=== PATIENT | male | born 1995 | race Hispanic/Latino ===

== ENCOUNTER 2023-05-04 23:34 | Emergency (ER) | payer SELFPAY ==
[2023-05-05] MEDS ORDERED: DIPHENOX/ATROP SULF 1 TAB PO ONE (00:39)
[2023-05-05] MEDS ORDERED: PROMETHAZINE 25 MG TABLET ONE (00:39)
[2023-05-05] MEDS ORDERED: IBUPROFEN 400 MG TAB ONE (00:40)
[2023-05-05] MEDS ORDERED: CODEINE 30MG/APAP 300MG TAB ONE (00:40)
--- NOTE | 2023-05-05 01:43 | EDPHYS ---
Physician Documentation [facility] Name: Gavino Vega Age: 27 yrs Sex: Male : 1995 Arrival Date: 05/04/2023 Time: 23:34 Bed IW1 Private MD: ED Physician Hugo Boland HPI: 05/05 00:14 This 27 yrs old Male presents to ER via Unassigned with complaints of Fever, sp4 Cough, Congestion, Sore Throat, General Weakness, Muscle Aches. 00:18 Patient presents with 1 week of body aches, headache, chills, subjective fever, nausea, sp4 diarrhea and feeling unwell overall. Historical: - Allergies: 00:16 No Known Allergies; vc1 - Home Meds: 00:16 None [Active]; vc1 - PMHx: 00:16 None; vc1 - PSHx: 00:16 None; vc1 - Immunization history:: Client reports having NOT received the Covid vaccine. - Social history:: Smoking status: Reported history of juuling and/or vaping. - Family history:: not pertinent. ROS: 01:40 Constitutional: Positive fever, chills, body ache sp4 01:40 All other systems are negative, Exam: 01:40 Constitutional: This is a well developed, well nourished patient who is awake, alert, sp4 and in no acute distress. Head/Face: Normocephalic, atraumatic. Eyes: Pupils equal round and reactive to light, extra-ocular motions intact. Lids and lashes normal. Conjunctiva and sclera are not injected. Cornea within normal limits. Periorbital areas with no swelling, redness, or edema. ENT: Nares patent. No nasal discharge, no septal abnormalities noted. Tympanic membranes are normal and external auditory canals are clear. Oropharynx with no redness, swelling, or masses, exudates, or evidence of obstruction, uvula midline. Mucous membranes moist. Neck: Trachea midline, no thyromegaly or masses palpated, and no cervical lymphadenopathy. Supple, full range of motion without nuchal rigidity, or vertebral point tenderness. Chest/axilla: Normal chest wall appearance and motion. Nontender with no deformity. No lesions are appreciated. Cardiovascular: Regular rate and rhythm with a normal S1 and S2. No gallops, murmurs, or rubs. Normal PMI, no JVD. No pulse deficits. Respiratory: Lungs have equal breath sounds bilaterally, clear to auscultation and percussion. No rales, rhonchi or wheezes noted. No increased work of breathing, no retractions or nasal flaring. Abdomen/GI: Soft, non-tender, with normal bowel sounds. No distension or tympany. No guarding or rebound. No evidence of tenderness throughout. Back: No spinal tenderness. No costovertebral tenderness. Skin: Warm, dry with normal turgor. Normal color with no rashes, no lesions, and no evidence of cellulitis. MS/ Extremity: Pulses equal, no cyanosis. Neurovascular intact. Full, normal range of motion. Neuro: Awake and alert, GCS 15, oriented to person, place, time, and situation. Cranial nerves II-XII grossly intact. Motor strength 5/5 in all extremities. Sensory grossly intact. Psych: Awake, alert, with orientation to person, place and time. Behavior, mood, and affect are within normal limits Vital Signs: 00:13 BP 147 / 94; Pulse 71; Resp 18; Temp 98.1; Pulse Ox 100% ; Weight 108.41 kg; Height 5 vc1 ft. 10 in. ; 00:13 Body Mass Index 34.29 (108.41 kg, 177.8 cm) vc1 MDM: 00:25 Patient medically screened. sp4 01:40 Differential diagnosis: viral Infection, bacterial infection, URI, bronchitis, sp4 pneumonia UTI, gastroenteritis. Data reviewed: vital signs, nurses notes, old medical records, lab test result(s), Flu: negative. ED course: Coronavirus and influenza negative, patient discharged home , advised symptomatic medications. 05/05 00:14 Order name: COVID-19 SARS RT PCR; Complete Time: 36 sp4 05/05 00:14 Order name: Influenza Screen (a \T\ B); Complete Time: 36 sp4 Administered Medications: 00:29 Drug: Promethazine PO 50 mg PO once Route: PO; vc1 01:45 Follow up: Response: No adverse reaction lg3 00:29 Drug: Ibuprofen PO 800 mg PO once Route: PO; vc1 01:45 Follow up: Response: No adverse reaction lg3 00:29 Drug: Diphenoxylate-Atropine PO 2 tabs PO once Route: PO; vc1 01:44 Follow up: Response: No adverse reaction lg3 01:44 Follow up: Response: No adverse reaction lg3 01:45 Follow up: Response: No adverse reaction; Marked relief of symptoms vc1 00:30 Drug: Acetaminophen-Codeine PO (300 mg-30 mg) 2 tabs PO once; RASS on ADMIN: Combtv4, vc1 Very Agttd3, Agttd2, Rstlss1, AlertClm0, Drwsy-1, Lt Sdtn-2, Mod Sdtn-3, Dp Sdtn-4, UnArsble-5 Route: PO; 01:45 Follow up: Response: No adverse reaction lg3 01:41 Not Given (Patient Refused): ns 0.9% 1000 ml IV at 1 bolus Per protocol; 1000 mL bolus lg3 Disposition Summary: 05/05/23 01:43 Discharge Ordered Notes: We advise OTC Ibuprofen and Tylenol Location: Home sp4 Problem: new sp4 Symptoms: have improved sp4 Condition: Stable sp4 Diagnosis - Other specified fever sp4 - Acute febrile illness, acute viral illness, common cold sp4 Followup: sp4 - With: Private Physician - When: As needed - Reason: Discharge Instructions: - Discharge Summary Sheet sp4 - Fever, Adult, [id number] sp4 Forms: - Patient Portal Instructions sp4 Signatures: Dispatcher [employer] Georgina Morrison RN RN vc1 Hugo Boland MD MD sp4 Annie Dominique RN lg3 Corrections: (The following items were deleted from the chart) 01:41 01:37 IV Saline Lock ordered. sp4 lg3 01:41 01:37 Labs collected and sent ordered. sp4 lg3
--- NOTE | 2023-05-05 01:43 | ER ---
Nurse's Notes [facility] Name: Gavino Vega Age: 27 yrs Sex: Male : 1995 Arrival Date: 05/04/2023 Time: 23:34 Bed IW1 Private MD: Diagnosis: Other specified fever;Acute febrile illness, acute viral illness, common cold Presentation: 05/05 00:13 Chief complaint: Patient states: body aces sick times 1 week. I have a massive vc1 headache. I took an excedrin but it isn't working. I have chills, been feverish, nauseous and with a sore throat. Coronavirus screen: Vaccine status: Patient reports being unvaccinated. Client denies travel out of the [place] in the last 14 days. chills, cough unrelated to allergies, fatigue, fever, headache, muscle pain, nausea, vomiting. Client presents with at least one sign or symptom that may indicate coronavirus-19. Ebola Screen: Patient negative for fever greater than or equal to 101.5 degrees Fahrenheit, and additional compatible Ebola Virus Disease symptoms Patient denies exposure to infectious person. Patient denies travel to an Ebola-affected area in the 21 days before illness onset. No symptoms or risks identified at this time. Initial Sepsis Screen: Does the patient meet any 2 criteria? No. Patient's initial sepsis screen is negative. Does the patient have a suspected source of infection? No. Patient's initial sepsis screen is negative. Risk Assessment: Do you want to hurt yourself or someone else? Patient reports no desire to harm self or others. Onset of symptoms is unknown. 00:13 Method Of Arrival: Ambulatory vc1 00:13 Acuity: BERNA 4 vc1 Triage Assessment: 00:17 General: Appears in no apparent distress. uncomfortable, ill, Behavior is calm, vc1 cooperative, appropriate for age. Pain: Complains of pain in headache, generalized body ache. EENT: No deficits noted. Neuro: Level of Consciousness is awake, alert, obeys commands, Oriented to person, place, time, situation. Neuro: Reports headache. Cardiovascular: No deficits noted. Respiratory: Airway is patent Respiratory effort is even, unlabored, Respiratory pattern is regular, symmetrical, Breath sounds are clear. GI: No deficits noted. No signs and/or symptoms were reported involving the gastrointestinal system. : No deficits noted. No signs and/or symptoms were reported regarding the genitourinary system. Derm: No deficits noted. No signs and/or symptoms reported regarding the dermatologic system. Musculoskeletal: Reports weakness in generalized. Historical: - Allergies: 00:16 No Known Allergies; vc1 - Home Meds: 00:16 None [Active]; vc1 - PMHx: 00:16 None; vc1 - PSHx: 00:16 None; vc1 - Immunization history:: Client reports having NOT received the Covid vaccine. - Social history:: Smoking status: Reported history of juuling and/or vaping. - Family history:: not pertinent. Screenin:16 Abuse screen: Denies threats or abuse. Nutritional screening: No deficits noted. vc1 Tuberculosis screening: No symptoms or risk factors identified. 01:46 [facility] ED Fall Risk Assessment (Adult) History of falling in the last 3 months, lg3 including since admission No falls in past 3 months (0 pts) Confusion or Disorientation No (0 pts) Intoxicated or Sedated No (0 pts) Impaired Gait No (0 pts) Mobility Assist Device Used No (0 pt) Altered Elimination No (0 pt) Score/Fall Risk Level 0 - 2 = Low Risk Oriented to surroundings, Maintained a safe environment, Educated pt \T\ family on fall prevention, incl call for assistance when getting out of bed. Assessment: 01:45 Reassessment: Patient appears in no apparent distress at this time. No changes from lg3 previously documented assessment. Patient and/or family updated on plan of care and expected duration. Pain level reassessed. Patient is alert, oriented x 3, equal unlabored respirations, skin warm/dry/pink. Cardiovascular: No deficits noted. Respiratory: No deficits noted. Vital Signs: 00:13 BP 147 / 94; Pulse 71; Resp 18; Temp 98.1; Pulse Ox 100% ; Weight 108.41 kg; Height 5 vc1 ft. 10 in. ; 00:13 Body Mass Index 34.29 (108.41 kg, 177.8 cm) vc1 ED Course: 05/04 23:43 Patient arrived in ED. [email or web address] 05/05 00:14 Hugo Boland MD is Attending Physician. sp4 00:16 Triage completed. vc1 00:16 Arm band placed on right wrist. vc1 01:45 Patient has correct armband on for positive identification. lg3 01:45 No provider procedures requiring assistance completed. Patient did not have IV access lg3 during this emergency room visit. Administered Medications: 00:29 Drug: Promethazine PO 50 mg PO once Route: PO; vc1 01:45 Follow up: Response: No adverse reaction lg3 00:29 Drug: Ibuprofen PO 800 mg PO once Route: PO; vc1 01:45 Follow up: Response: No adverse reaction lg3 00:29 Drug: Diphenoxylate-Atropine PO 2 tabs PO once Route: PO; vc1 01:44 Follow up: Response: No adverse reaction lg3 01:44 Follow up: Response: No adverse reaction lg3 01:45 Follow up: Response: No adverse reaction; Marked relief of symptoms vc1 00:30 Drug: Acetaminophen-Codeine PO (300 mg-30 mg) 2 tabs PO once; RASS on ADMIN: Combtv4, vc1 Very Agttd3, Agttd2, Rstlss1, AlertClm0, Drwsy-1, Lt Sdtn-2, Mod Sdtn-3, Dp Sdtn-4, UnArsble-5 Route: PO; 01:45 Follow up: Response: No adverse reaction lg3 01:41 Not Given (Patient Refused): ns 0.9% 1000 ml IV at 1 bolus Per protocol; 1000 mL bolus lg3 Medication: 01:46 VIS not applicable for this client. lg3 Outcome: 01:43 Discharge ordered by . sp4 01:45 Discharged to home ambulatory, lg3 01:45 Condition: stable 01:45 Discharge instructions given to patient, Instructed on discharge instructions, follow up and referral plans. Demonstrated understanding of instructions, follow-up care, 01:46 Patient left the ED. lg3 Signatures: Annie Dominique RN RN lg3 Felicitas [email or web address] Georgina Aranda RN RN vc1 Hugo Boland MD MD sp4
[2023-05-05 01:51] VITALS: BP 147/94; TEMP 98.1; O2SAT 100
== END 2023-05-05 01:46 | disposition home or self-care (01) ==
LOC: ER 23:34
DX: J00 Acute nasopharyngitis [common cold] (principal)
CPT/HCPCS: 87635; 87804; 99283; Q0169